=== PATIENT | male | born 1990 | race Caucasian/White ===

== ENCOUNTER 2017-10-02 18:38 | Emergency (ER) | payer OTHER ==
[~2017-10-02] VITALS: Ht 180.3 cm; Wt 68.0 kg
[2017-10-02 20:58] VITALS: BP 115/67
--- NOTE | 2017-10-02 21:00 | ED GI/GU/ABDOMINAL COMPLAINT ---
History of Present Illness General Chief Complaint: Male Genitourinary Problems Stated Complaint: HEAMTURIA Source: patient Exam Limitations: no limitations Vital Signs & Intake/Output Vital Signs & Intake/Output Vital Signs Date Time Temp Pulse Resp B/P B/P Pulse O2 O2 Flow FiO2 Mean Ox Delivery Rate 10/02 2057 98.4 83 16 115/67 99 Room Air Allergies Coded Allergies: codeine (Intermediate, RASH 10/02/17) Triage Note: 27M WITH DARK URINE 3 DAYS AGO, SOME REPORTED BLOOD IN URINE YESTERDAY, AND SUBJECTIVE FEVERS THAT HE TREATED WITH IBUPROFEN AND TYLENOL. REPORTS LOW BACK PAIN, SLIGHTLY MORE TO RIGHT. AFEBRILE Triage Nurses Notes Reviewed? yes Onset: Abrupt Duration: day(s): Timing: recent history Location: unknown Radiation: no radiation No Modifying Factors: none HPI: 27-year-old male comes into the emergency room because he had some intermittent blood in his urine past few days. No blood today. No fever today. He had a few episodes of blood in the toilet yesterday and the day before with associated low-grade fever. Subjective. No abdominal pain. No vomiting. Today his symptoms improved and resolved but he comes in for further evaluation. Denies any urethral discharge or pain with urination or increased frequency or urgency. He's had some intermittent low back pain recently. (Dylon Stanford) Past History Travel History Traveled to [place] past 21 day No Medical History Any Pertinent Medical History? see below for history Neurological: NONE EENT: NONE Cardiovascular: NONE Respiratory: NONE Gastrointestinal: NONE Hepatic: NONE Renal: NONE Musculoskeletal: NONE Psychiatric: NONE Endocrine: NONE Surgical History Surgical History: non-contributory Psychosocial History What is your primary language Estonian Tobacco Use: Never used ETOH Use: occasional use Illicit Drug Use: marijuana Family History Hx Contributory? No (Dylon Stanford) Review of Systems Review of Systems Constitutional: Reports: no symptoms. EENTM: Reports: no symptoms. Respiratory: Reports: no symptoms. Cardiovascular: Reports: no symptoms. GI: Reports: no symptoms. Genitourinary: Reports: see HPI. Musculoskeletal: Reports: no symptoms. Skin: Reports: no symptoms. Neurological/Psychological: Reports: no symptoms. Hematologic/Endocrine: Reports: no symptoms. Immunologic/Allergic: Reports: no symptoms. All Other Systems: Reviewed and Negative (Dylon Stanford) Physical Exam Physical Exam General Appearance: well developed/nourished, no apparent distress, alert, awake Head: atraumatic, normal appearance Eyes: Bilateral: normal appearance. Ears, Nose, Throat, Mouth: hearing grossly normal, moist mucous membrane Neck: normal inspection Respiratory: normal breath sounds, no respiratory distress Gastrointestinal: soft, non-tender Back: normal inspection, normal range of motion Extremities: normal range of motion Neurologic/Psych: awake, alert Skin: intact Core Measures ACS in differential dx? No Sepsis Present: No Sepsis Focused Exam Completed? No (Dylon Stanford) Progress Differential Diagnosis: prostatitis, pyelonephritis, STD, ureterolithiasis, urinary retention, urethritis, UTI/pyelo Plan of Care: Orders Procedure Date/time Status URINALYSIS 10/02 1853 Complete Laboratory Tests 10/02/171858: Urine Color YEL, Urine Clarity CLEAR, Urine pH 6.5, Ur Specific [place] <= 1.005 , Urine Protein NEG, Urine Ketones NEG, Urine Nitrite NEG, Urine Bilirubin NEG, Urine Urobilinogen 0.2, Ur Leukocyte Esterase NEG, Ur Microscopic SEDIMENT EXAMINED, Urine RBC 3-5, Urine WBC 1-3 H, Urine Hemoglobin MOD H, Urine Glucose NEG Initial ED EKG: none Comments: 10/02/2017 9:25:54 PM Patient clinically looks well. In no apparent distress. Asymptomatic. Follow- up with PCP. (Dylon Stanford) Departure Departure Disposition: HOME OR SELF CARE Condition: Stable Clinical Impression Primary Impression: Hematuria Referrals: Genaro PA,Jason Szymanski MD,Breezy Barrett (PCP/Family) Additional Instructions: Follow-up with urologist provided. Return if any concerns worsening symptoms. Please go over all results of today's visit with your primary care doctor. Contact your primary care doctor to let them know you were here in the emergency room. There may be nonspecific findings which may not be related to your visit today here in the emergency room but may require further evaluation and chronic monitoring by your primary care doctor. If you had a laceration today the chance of foreign body always remains. You should follow-up with your primary care doctor for recheck in 3-5 days for a wound check. If you had an x-ray done there is a chance that a fracture could have been missed on initial read and you should follow-up with your primary care doctor for repeat x-rays if symptoms persist. If your blood pressure was elevated here in the emergency room please have rechecked by merour primary care doctor within the next 48. If you were prescribed a narcotic here in the emergency room or any type of controlled substances you're not allowed to drive while taking this medication or operate any type of heavy machinery. Narcotics can make you feel lightheaded dizziness nausea and can cause constipation. You may need to pickle water pump operator a stool softener. Thank you for choosing [facility] emergency room. Please return to the emergency room immediately if you have any other concerns worsening of symptoms. Departure Forms: Customer Survey General Discharge Information (Dylon Stanford) PA/FIELD INSTALLER Co-Sign Statement Statement: ED Attending supervision documentation- [] I saw and evaluated the patient. I have also reviewed all the pertinent lab results and diagnostic results. I agree with the findings and the plan of care as documented in the PA's/FIELD INSTALLER's documentation. [x] I have reviewed the ED Record and agree with the PA's/FIELD INSTALLER's documentation. [] Additions or exceptions (if any) to the PAs/FIELD INSTALLER's note and plan are summarized below: [] (Jasmyne PA,Juan Carbone)
== END 2017-10-02 21:07 ==
LOC: ERH 18:38
DX: R31.9 Hematuria, unspecified (principal); R50.9 Fever, unspecified
CPT/HCPCS: 81001